=== PATIENT | male | born 2000 | race Caucasian/White ===

== ENCOUNTER 2023-07-11 18:23 | Emergency (ER) | payer OTHER, SELFPAY ==
[2023-07-11 18:32] VITALS: BP 159/84; PULSE 87; RESP 20; TEMP 37.7; O2SAT 100
--- NOTE | 2023-07-11 19:00 | ED.GENADULT ---
HPI - General Adult General Chief complaint: Dental/Oral Stated complaint: sinus inf Source: patient Mode of arrival: ambulatory Limitations: no limitations History of Present Illness HPI narrative: Patient presents for evaluation of dental pain since yesterday. He rates his pain 8/10 severity, without descriptive quality. No fever, chills, nausea, vomiting, trismus, problems handling secretions. No history of similar symptoms in the past. He has a dental fracture in that area. He has been taking 800 mg of ibuprofen without considerable improvement in his pain thereafter. Related Data Allergies Allergy/AdvReac Type Severity Reaction Status Date / Time No Known Allergies Allergy Verified 07/11/23 18:37 Review of Systems Review of Systems: CONSTITUTIONAL: Denies fever, chills, or sweats. EYES: Denies visual changes, redness, or discharge. ENT: Reports dental pain. Denies rhinorrhea, congestion, sore throat, or otalgia. CARDIOVASCULAR: Denies chest pain, palpitations, or edema. RESPIRATORY: Denies cough or dyspnea. GASTROINTESTINAL: Denies abdominal pain, nausea, vomiting, or diarrhea. GENITOURINARY: Denies dysuria or hematuria. SKIN: Denies rash or itching. MUSCULOSKELETAL: Denies back pain, joint pain, or myalgia. NEUROLOGIC: Denies headache, numbness, dizziness, or weakness. PSYCHIATRIC: Denies anxiety or depression. PMFSH Past Medical History Medical History Dental infection Tooth fracture Surgical History Surgical History No pertinent past surgical history Family History Family History Mother Family history non-contributory Social History Social History Substance use: current Substance use type: marijuana Gender identity (if verbalized by the patient): Male Spiritual care concerns: No Exam Narrative: GENERAL: Well-appearing, well-nourished, and in no acute distress. HEAD: Normocephalic, atraumatic. EYES: PERRLA and EOMI. ENT: Nares clear, no rhinorrhea or epistaxis. Mucous membranes moist. Tooth #8 is fractured. There is a small amount of swelling in the gumline superior to tooth #8 which is tender to palpation. No gross abscess. Oropharynx without tonsillar hypertrophy exudate or other lesions. Bilateral TMs pearly rees nonbulging NECK: Supple. No adenopathy or masses. No carotid bruits or JVD CHEST: Clear to auscultation. No respiratory distress. No wheezes rales or rhonchi HEART: Regular rate and rhythm. No murmur heard. Normal peripheral pulses. ABDOMEN: Soft, nontender, nondistended, normal active bowel sounds. EXTREMITIES: Normal range of motion. No edema. SKIN: Warm, dry, no rash. NEURO: No focal deficits. Alert and oriented x3. PSYCH: Normal mood and affect. Course Course Emergency Course: This is a 23-year-old male who presented for evaluation of dental pain. He has a dental fracture on exam. Looks like he has a developing infection in the gumline superior to that. No drainable fluid collection on exam today. Will discharge with penicillin. Small quantity of tramadol given the fact that pain is refractory to ibuprofen. Follow-up with dentist. Go to the ER for worsening symptoms. Patient in agreement plan care. Level of Care: Express Care Visit Vital Signs Vital signs: Vital Signs Temperature 37.7 C H 07/11/23 18:32 Pulse Rate 87 07/11/23 18:32 Respiratory Rate 20 07/11/23 18:32 Blood Pressure 159/84 H 07/11/23 18:32 Pulse Oximetry 100 07/11/23 18:32 Oxygen Delivery Room Air 07/11/23 18:32 Temperature 37.7 C H 07/11/23 18:32 Pulse Rate 87 07/11/23 18:32 Respiratory Rate 20 07/11/23 18:32 Blood Pressure 159/84 H 07/11/23 18:32 Pulse Oximetry 100 07/11/23 18:32 Oxygen Delivery Room
== END 2023-07-11 19:03 | disposition home or self-care (01) ==
PROVIDERS: Emergency Provider Nurse Practitioner
DX: K04.7 Periapical abscess without sinus (principal); S02.5XXA Fracture of tooth (traumatic), initial encounter for closed fracture; X58.XXXA Exposure to other specified factors, initial encounter; F12.90 Cannabis use, unspecified, uncomplicated
CPT/HCPCS: 99213; G0463